=== PATIENT | male | born 1995 | race African-American/Black ===

== ENCOUNTER 2021-06-02 02:51 | Emergency (ER) | payer SELFPAY ==
[2021-06-02 03:01] VITALS: BP 131/89; BP 135/90; PULSE 100; PULSE 103; RESP 18; TEMP 36.9; O2SAT 100; O2SAT 98; BMI 20.3
--- NOTE | 2021-06-02 03:23 | ED_ITS ---
HPI - Wound/Laceration General Chief Complaint: Wound/Laceration Stated Complaint: ETOH LAC ON FINGER Time Seen by Provider: 06/02/21 03:22 Source: patient Mode of arrival: ambulatory Limitations: other (agitated, using profane language, difficult to examine) History of Present Illness Onset (ago): minute(s) (30) Extremity Location: left: hand (index finger ) Place: home Patient tetanus UTD: No Context: accidental (cut on plate after smashing it) Associated symptoms: none Treatments prior to arrival: bandage Related Data Allergies Allergy/AdvReac Type Severity Reaction Status Date / Time No Known Allergies Allergy Verified 06/02/21 03:25 Review of Systems Verdana 4l Review of Systems: Verdana 4d Verdana 4d Constitutional : No Fever, No Chills, Cardiovascular : No Chest Pain, No SOB Respiratory : No Dyspnea Gastrointestinal : No abdominal pain Musculoskeletal : No Joint Swelling Skin : No rash, positive skin laceration Neuro : No Weakness, NoNo Numbness Psych : No SI/HI PMFSH Past Medical History Attestation statement: The following information was validated with the patient. Medical History No known health problems Social History Social History (Updated 06/02/21 @ 03:26 by Lulú Acevedo DO) Patient Tobacco Use Status: Never used Tobacco Advance Directives: No Advance Directives Information Provided: No Physical Exam Verdana 4l Vital Signs: Verdana 4d Verdana 4d Vital Signs: Verdana 4d Verdana 4Bd Last Vital Signs Verdana 4d Desktop Engineer New 4d Desktop Engineer New 4d Temp 98.4 F 06/02/21 03:01 Desktop Engineer New 4d Pulse 103 H 06/02/21 03:01 Desktop Engineer New 4d Resp 18 06/02/21 03:01 BP 131/89 06/02/21 03:01 Pulse Ox 100 06/02/21 03:01 BMI result Body Mass Index 20.3 Appearance: Alert. Oriented X3. agitated, I ain't no bitch Don't tell me how to act. Mild acute distress. Eyes: Pupils equal, round and reactive to light. ENT: Pharynx normal. Neck: Normal inspection. Neck supple. CVS: Pulses normal. Respiratory: No respiratory distress. Abdomen: Atraumatic Skin: Skin warm and dry. Normal skin color. L index finger 2.5cm avulsion superficial full ROM distal NV intact very superficial Extremities: No lower extremity edema. Neuro: Oriented X 3. No motor deficit. No sensory deficit. Course Course Course Narrative: on repeat exam PE: there is a very superficial avulsion flap with missing tissue under the flap, I cannot use sutures since the flap is so thin, the underlying tissue is missing I believe at this time given tissue loss the best way to manage is to use surgical glue, steri strips and splint no signs of tendon injury MDM - Wound/Laceration MDM Narrative Medical decision making narrative: 25 yo female R hand dominant - here with avulsion after smashing plates - distal NV intact no signs of FB noted, no obvious tendon injury the distal part of avulsion is very thin and fragile will attempt to glue the area as I believe the skin will tear with sutures, will place in splint to heal. Patient is difficult to examine and is vulgar at times using profane language. Procedures Laceration Laceration 1: Site: hand (left index) Side (If applicable): left Size (cm): 2.5 Description: flap (very superficial and thin/fragile), irregular and other (loss of tissue underneath still superficial no tendon involvement noted full ROM distally has good strength - initially very hard to examine and very argumentative with staff) Depth: simple, single layer (see above) Pre-repair: wound explored, irrigated extensively and deep structures intact Skin layer closed with: other (dermabond due to flap being so thin and fragile then covered with steri strips /gauze and finger splint) Discharge Plan Discharge Clinical Impression: Avulsion of skin Patient Disposition: Home, Self-Care Instructions: Skin Avulsion (ED), Skin Adhesive Care (ED) Additional Instructions: return to ED for any worsening symptoms or concerns the skin glue will dissolve off in 1 week as well as the steri strips - please do not pick off. monitor for redness, swelling, fevers, yellow drainage do not soak or get wet. you unfortunately had tissue loss and the overlying flap was too thin and fragile to use sutures Stand Alone Forms: Work/School Release Interventions: ED Discharge Assessment Last Done: 06/02/21 04:29 Discharge Date/Time: 06/02/21 04:30
[2021-06-02] MEDS: Diphth,Pertus(ACell),Tet Adult 0.5 ML SYRINGE IM (03:57)
== END 2021-06-02 04:30 | disposition home or self-care (01) ==
PROVIDERS: Emergency Provider Emergency Medicine; PCP Pediatrics
DX: S61.211A Laceration without foreign body of left index finger without damage to nail, initial encounter (principal); S60.512A Abrasion of left hand, initial encounter; W26.9XXA Contact with unspecified sharp object(s), initial encounter; Y93.9 Activity, unspecified; Y92.9 Unspecified place or not applicable; Y99.9 Unspecified external cause status
CPT/HCPCS: 90471; 90715; 99283; 99284